=== PATIENT | male | born 1995 | race Caucasian/White ===

== ENCOUNTER 2017-09-27 22:27 | Emergency (ER) | payer MEDICAID ==
[~2017-09-27] VITALS: Ht 182.9 cm; Wt 100.0 kg
[~2017-09-27 22:27] MED LIST: METH36TA
[2017-09-27 22:35] VITALS: BP 110/61
== END 2017-09-28 03:43 | disposition left against medical advice (07) ==
LOC: ER 09-28 00:06
DX: R10.9 Unspecified abdominal pain (principal); Z53.21 Procedure and treatment not carried out due to patient leaving prior to being seen by health care provider